=== PATIENT | male | born 1990 | race African-American/Black ===

== ENCOUNTER 2017-01-30 08:20 | Emergency (ER) | payer MEDICAID, OTHER ==
[~2017-01-30] VITALS: Ht 180.3 cm; Wt 90.7 kg
[~2017-01-30 08:20] MED LIST: CIPROFLOXACIN500 M2 ORAL; CLOTRIMAZOLE15 GM TOPIC; PROAIR HFA8.5 GM INH
[2017-01-30 08:37] VITALS: BP 148/72
[2017-01-30] MEDS ORDERED: Bacitracin Oint UD TOPIC ONE (08:52)
[2017-01-30 09:15] VITALS: BP 129/66
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
== END 2017-01-30 09:18 | disposition home or self-care (01) ==
LOC: EMR 08:45
DX: T25.522A Corrosion of first degree of left foot, initial encounter (principal); T25.53 Corrosion of first degree of toe(s) (nail); T65.891A Toxic effect of other specified substances, accidental (unintentional), initial encounter; J45.909 Unspecified asthma, uncomplicated
CPT/HCPCS: 99283

== ENCOUNTER → 2017-10-20 | Emergency (ER) | payer MEDICAID ==
[~2017-10-20] VITALS: Ht 180.3 cm; Wt 86.2 kg
[~2017-10-20] MED LIST changes: +ALBUTEROL SULF8.5 GM INH; +ALBUTEROL2.5 MG/3 M INH
[2017-10-20 12:13] VITALS: BP 123/74
--- NOTE | 2017-10-20 12:39 | Emergency Room Report ---
History of Present Illness General Chief Complaint: Asthma Source: Patient, Medical Record Present Illness HPI 27-year-old male patient presents ER requesting medication refill for his asthma medications. Reports he was having wheezing symptoms last night that required him going to his mom's house to receive a breathing treatment because he ran out of his medication. Denies acute symptoms at this time. However would like medication. Denies fever, chest pain, shortness of breath. Denies abdominal pain or other acute symptoms at this time. Patient girlfriend currently being seen in ER for different symptoms, states he wanted to get medication refill while he was here. Allergies: Coded Allergies: No Known Allergies (Unverified , 08/30/15) Patient History Past Medical History: see triage record Reviewed Nursing Documentation: PMH: Agreed; PSxH: Agreed Nursing Documentation-PMH Past Medical History: No History, Except For Hx Asthma: Yes Review of Systems All Other Systems: negative except mentioned in HPI Physical Exam Vital Signs Date Time Temp Pulse Resp B/P (MAP) Pulse Ox O2 Delivery O2 Flow Rate FiO2 10/20/17 12:13 66 18 Room Air 10/20/17 12:13 98.2 123/74 97 98.2 Sp02 EP Interpretation: reviewed, normal General Appearance: well appearing, no apparent distress, alert, GCS 15, non- toxic Head: normocephalic, atraumatic Eyes: bilateral eye normal inspection, bilateral eye PERRL ENT: hearing grossly normal, normal pharynx, no angioedema, normal voice, uvula midline, moist mucus membranes Neck: full range of motion Respiratory: lungs clear, normal breath sounds, no rhonchi, no respiratory distress, no accessory muscle use, speaking full sentences, wheezing - diffuse intermittent Cardiovascular #1: regular rate, rhythm, no edema Genitourinary: no CVA tenderness Musculoskeletal: back normal, digits/nails normal, gait/station normal, normal range of motion, non-tender Neurologic: alert, oriented x3, responsive, motor strength/tone normal, sensory intact Medical Decision Making PA Attestation Dr. Tapia is my supervising Physician whom patient management has been discussed with. Diagnostic Impression: Primary Impression: Encounter for medication refill ER Course Pt. presents to the ED requesting prescription refill. Multiple differentials were considered. Vital signs: are WNL, pt. is afebrile ORDERS: PE mild diffuse intermittent wheezing noted. Patient afebrile, no crackles, low suspicion for pneumonia, does not require chest x-ray at this time. patient declined breathing treatment, states breathing fine now, no SOB. Informed patient will provide refill of medication. States has nebulizer breathing machine at home. Contact primary care provider for further treatment. Informed patient ER cannot provide refills in the future; followup, management and prescription of long-term medications must be performed by primary care provider. DISCHARGE: Rx provided for albuterol Rx provided for nebulized albuterol At this time pt is stable for d/c to home. Patient is resting comfortably, in no acute distress, nontoxic appearing, talking without difficulty. Patient to take medications as instructed Will provide with patient care instructions and any necessary prescriptions. Care plan and follow-up instructions provided. Patient instructed to follow-up with primary care provider in 3 - 5 days. Patient questions asked and answered. Patient reports understanding and agreement to treatment plan. ER precautions given. Patient instructed to return to ER immediately for any new or worsening of symptoms including but not limited to increasing SOB, persistent fever. - Please note that this Emergency Department Report was dictated using [employer] Interactive[employer]rection[employer] supervisor technology software, occasionally this can lead to erroneous entry secondary to interpretation by the dictation equipment. Last Vital Signs Date Time Temp Pulse Resp B/P (MAP) Pulse Ox O2 Delivery O2 Flow Rate FiO2 10/20/17 12:13 98.2 66 18 123/74 97 Room Air 98.2 Disposition: HOME, SELF-CARE Condition: Stable Scripts Albuterol Sulfate* (ALBUTEROL SULFATE HHN*) 2.5 Mg/3 Ml Vial.neb 3 ML INH Q6H PRN for Shortness of Breath, #30 EA 0 Refills Prov: Arturo Shelton 10/20/17 Albuterol Sulfate* (ALBUTEROL SULFATE MDI*) 8.5 Gm Hfa.aer.ad 2 PUFF INH Q6H, #1 INH 0 Refills Prov: Arturo Shelton 10/20/17 Patient Instructions: Asthma, Adult Additional Instructions: Followup with primary care provider in 3 -5 days. Take medications as directed. Patient questions asked and answered. ER precautions given, patient instructed to return to ER immediately for any new or worsening of symptoms. Arturo Shelton Oct 20, 2017 12:39
[2017-10-20 12:59] VITALS: BP 123/74
== END | disposition home or self-care (01) ==
LOC: EMR 13:00
DX: Z76.0 Encounter for issue of repeat prescription (principal); J45.909 Unspecified asthma, uncomplicated
CPT/HCPCS: 99283